=== PATIENT | female | born 1990 ===

== ENCOUNTER 2023-10-13 06:32 | Inpatient (IN) | payer OTHER ==
[~2023-10-13] VITALS: Ht 160 cm; Wt 94.3 kg
[2023-10-13] MEDS ORDERED: PRENATAL TABLE1 EAC1 PO (07:19)
[2023-10-13 08:58] LABS: HEMATOCRIT 39.7 % (36.0-45.00); HEMOGLOBIN 13.4 g/dL (12.0-15.00); MEAN CELL VOLUME 84.2 fL (80.00-100.00); MEAN CORPUSCULAR HEMOGLOBIN 28.4 pg (27.00-32.0); MEAN CORPUSCULAR HGB CONC 33.7 g/dl (32.0-36.0); PLATELET COUNT 276 K/uL (150-450); RED BLOOD COUNT 4.72 M/uL (4.00-6.00); RED CELL DISTRIBUTION WIDTH 13.5 % (11.5-14.5)
[2023-10-13 09:34] LABS: INR < 0.93; PARTIAL THROMBOPLASTIN TIME 22.9 SECONDS (22.0-34.0); PROTHROMBIN TIME 9.6 SECONDS (9.0-11.5)
[2023-10-13 09:54] LABS: ALBUMIN 2.6 gm/dL (3.4-5.0); BILIRUBIN TOTAL 0.62 mg/dL (0.3-1.2); CALCIUM 8.6 mg/dL (8.5-10.1); CREATININE SERUM 0.75 mg/dL (0.55-1.02); GFR 90.73; GLOBULINA 3.6 G/DL (2.4-3.5); POTASSIUM 4.22 mEq/L (3.5-5.1); TOTAL PROTEIN 6.2 gm/dL (6.4-8.2)
== END 2023-10-14 09:11 | disposition home or self-care (01) | DRG 833 ==
LOC: LDR 06:32
PROVIDERS: ADMIT Obstetrics & Gynecology; ATTEND Obstetrics & Gynecology
PROC: 4A1HXCZ Monitoring of Products of Conception, Cardiac Rate, External Approach (ICD-10-PCS; principal; 2023-10-13)
PROC: BW40ZZZ Ultrasonography of Abdomen (ICD-10-PCS; 2023-10-13)
PROC: BY4FZZZ Ultrasonography of Third Trimester, Single Fetus (ICD-10-PCS; 2023-10-13)
DX: O21.8 Other vomiting complicating pregnancy (principal); Z3A.37 37 weeks gestation of pregnancy; Z20.822 Contact with and (suspected) exposure to COVID-19

== ENCOUNTER 2023-10-28 14:26 | Outpatient (CLI) | payer OTHER ==
[~2023-10-28 14:26] MED LIST: PRENATAL TABLE1 EAC1 PO
== END 2023-10-28 15:10 | disposition home or self-care (01) ==
LOC: NST 14:26
PROVIDERS: ATTEND Obstetrics & Gynecology
DX: Z34.83 Encounter for supervision of other normal pregnancy, third trimester (principal)